=== PATIENT | female | born 1970 | race Caucasian/White ===

== ENCOUNTER 2017-07-17 15:17 | Emergency (ER) | payer MEDICAID ==
[~2017-07-17] VITALS: Ht 165.1 cm; Wt 59.0 kg
[2017-07-17 15:20] VITALS: BP 141/59
--- NOTE | 2017-07-17 15:22 | NUR ---
47 YO F BIB SELF W/ C/O HEART RACING THAT BEGAN TODAY AT 0900. PT STATES SHE FELT IT SATURDAY AND IT STOPPED UNTIL THIS MORNING. SHE SAYS IT FEELS LIKE HER HEART IS BEATING OUT OF HER CHEST. IT IS NOT ACCOMPANIED BY PAIN. PT DENIES N/V/D. DENIES ANY DIZZINESS/LIGHTHEADEDNESS, BUT STATES THAT SHE HAS A MINOR MEEHAN THAT BEGAN "A COUPLE HOURS AGO" BUT IT IS NOT HER CHEIF COMPLAINT. PT A&O X4. [facility] 15. AMBULATORY W/ STEADY GAIT. CMS INTACT. ABD SOFT, NON-TENDER. ER MD SHETTY NOTIFIED. SAFETY PRECAUTIONS IN PLACE. PT NEEDS MET. WILL CONTINUE TO MONITOR.
--- NOTE | 2017-07-17 15:34 | NUR ---
Jose Ramon gilmore in [facility] - 07/17/17 at 1619 by [email or web address] PT AMBULATED TO BED 3
--- NOTE | 2017-07-17 16:23 | NUR ---
LAB AT BEDSIDE AT THIS TIME.
[2017-07-17 16:48] LABS: BASOPHILS % (AUTO) 0.5 % (0.0-2.0); EOSINOPHILS # (AUTO) 0.1 K/uL (0-0.4); EOSINOPHILS % (AUTO) 0.8 % (0.0-4.0); HEMATOCRIT 35.5 % (36-48); HEMOGLOBIN 11.7 g/dL (12.0-16.0); LYMPHOCYTES # (AUTO) 2.1 K/uL (2.5-16.5); LYMPHOCYTES % (AUTO) 27.8 % (20.5-51.1); MEAN CORPUSCULAR HEMOGLOBIN 31 pg (27-31); MEAN CORPUSCULAR HGB CONC 33 g/dL (33-37); MEAN CORPUSCULAR VOLUME 93.1 fL (80-94); MONOCYTES # (AUTO) 0.6 K/uL (0.8-1.0); MONOCYTES % (AUTO) 8.3 % (1.7-9.3); NEUTROPHILS # (AUTO) 4.8 K/uL (1.8-7.7); NEUTROPHILS % (AUTO) 62.6 % (42.2-75.2); PLATELET COUNT (AUTO) 220 K/uL (140-450); RED BLOOD CELL COUNT(AUTO) 3.81 MIL/uL (4.20-5.40); WHITE BLOOD COUNT (AUTO) 7.7 K/uL (4.8-10.8)
[2017-07-17 17:00] LABS: CARBON DIOXIDE 26.2 mmol/L (21-32); CREATININE 0.7 mg/dL (0.6-1.3); POTASSIUM 4.2 mmol/L (3.5-5.1)
--- NOTE | 2017-07-17 17:07 | NUR ---
PT RESTING IN [facility] AT THIS TIME. PT APPEARS RELAXED. SAFETY PRECAUTIONS IN PLACE. WILL CONTINUE TO MONITOR.
[2017-07-17 17:17] LABS: ALBUMIN 3.6 g/dL (3.4-5.0); FREE T4 (FREE THYROXINE) 0.96 ng/dL (0.76-1.46); THYROID STIMULATING HORMONE 1.8 uIU/mL (0.34-3.74); TOTAL BILIRUBIN 0.1 mg/dL (0.0-1.0)
[2017-07-17 17:38] LABS: CREATINE KINASE MB 0.8 ng/mL (0-3.6)
[2017-07-17 17:43] VITALS: BP 138/54
--- NOTE | 2017-07-17 17:45 | NUR ---
Patient discharged with v/s stable. Written and verbal after care instructions given and explained. Patient verbalized understanding. Ambulatory with steady gait. All questions addressed prior to discharge. Advised to follow up with PMD.
== END 2017-07-17 17:45 | disposition home or self-care (01) ==
LOC: MED 15:17
DX: R00.2 Palpitations (principal); R42 Dizziness and giddiness; R51 Headache
CPT/HCPCS: 36415; 71045; 80053; 82550; 82553; 83690; 84439; 84443; 84484; 85025; 85379; 93005; 99285